=== PATIENT | female | born 1965 | race Caucasian/White ===

== ENCOUNTER 2017-01-17 16:38 | Emergency (ER) | payer OTHER ==
[2017-01-17 16:44] VITALS: O2SAT 97
--- NOTE | 2017-01-17 17:01 | EDPHY ---
H & P Stated Complaint: dvt r leg confirmed U/S today Time Seen by Provider: 01/17/17 16:49 HPI/ROS: CHIEF COMPLAINT: Right calf pain and swelling HISTORY OF PRESENT ILLNESS: The patient presents to the ED with complaints of right calf pain and swelling progressive over the past week. The patient sustained a twisting injury while skiing this weekend. She has no prior history of PE or DVT. She denies pleuritic chest pain or shortness of breath. Patient saw her orthopedic surgeon who did order an outpatient ultrasound which demonstrated a right DVT. She was referred to the ED for further evaluation. In the emergency department she denies numbness weakness. She denies additional complaints. REVIEW OF SYSTEMS: A comprehensive 10 point review of systems is otherwise negative aside from elements mentioned in the history of present illness. Source: Patient - Personal History LMP (Females 10-55): 1-7 Days Ago Current Tetanus/Diphtheria Vaccine: Unsure Current Tetanus Diphtheria and Acellular Pertussis (TDAP): Unsure - Medical/Surgical History Hx Asthma: No Hx Chronic Respiratory Disease: No Hx Diabetes: No Hx Cardiac Disease: No Hx Renal Disease: No Hx Cirrhosis: No Hx Alcoholism: No Hx HIV/AIDS: No Hx Splenectomy or Spleen Trauma: No Other PMH: depression. torn acl R no surgery yet - Social History Smoking Status: Never smoked - Physical Exam Exam: General Appearance: Alert, no distress Eyes: Pupils equal and round no pallor or injection ENT, Mouth: Mucous membranes moist Respiratory: There are no retractions, lungs are clear to auscultation Cardiovascular: Regular rate and rhythm Gastrointestinal: Abdomen is soft and nontender, no masses, bowel sounds normal Neurological: A&O, normal motor function, normal sensory exam, normal cranial nerves Skin: Warm and dry, no rashes Musculoskeletal: Neck is supple nontender Extremities: Asymmetric calf pain, tenderness and swelling noted to the right calf, 2+ dorsalis pedis and posterior tibial pulse, effusion and decreased range of motion noted to the right knee Constitutional: Initial Vital Signs Temperature (C) 36.4 C 01/17/17 16:41 Heart Rate 85 01/17/17 16:41 Respiratory Rate 16 01/17/17 16:41 Blood Pressure 103/76 01/17/17 16:41 O2 Sat (%) 97 01/17/17 16:41 O2 Delivery Mode Room Air Allergies/Adverse Reactions: penicillin G Allergy (Verified 01/17/17 16:40) Home Medications: Medication Instructions Recorded Rivaroxaban [Xarelto 15mg (*)] 15 mg PO BID #42 tab 01/17/17 Topamax 01/17/17 ZOLPIDEM TARTRATE 01/17/17 Medical Decision Making - Diagnostics Imaging: Ultrasound Venous Duplex/Doppler Right Leg History: Pain and swelling. Skiing injury. Findings: Ultrasound venous duplex and Doppler imaging of the common femoral vein, femoral vein, popliteal vein, calf veins, greater saphenous vein origin, and contralateral common femoral vein demonstrates positive intraluminal thrombus involving the right popliteal vein extending through the right as well as both gastrocnemius veins. The common femoral vein and superficial femoral vein appear patent. Impression: Positive deep venous thrombosis involving the right leg including the popliteal vein and calf veins. ED Course/Re-evaluation: The patient presents to the ED with a right lower extremity DVT. The patient has no clinical symptoms suggestive of PE. The patient will be started on Xarelto and follow up with her primary care provider. Initial dose of Xarelto will be started on a 15 mg twice daily dose for the next 21 days. The patient will follow up with her primary care provider Vivian Gregory. The patient understands to return to the ED for any chest pain, shortness of breath, worsening symptoms or other concerns. Differential Diagnosis: Differential diagnosis considered includes DVT, arterial thrombosis, calf hematoma, knee ligamentous injury - Data Points Laboratory Results: Laboratory Results 01/17/17 17:10 01/17/17 17:10 01/17/17 01/17/17 01/17/17 17:10 17:10 17:10 WBC 6.77 10^3/uL 10^3/uL (3.80-9.50) RBC 4.84 10^6/uL 10^6/uL (4.18-5.33) Hgb 13.3 g/dL g/dL (12.6-16.3) Hct 40.4 % % (38.0-47.0) MCV 83.5 fL fL (81.5-99.8) MCH 27.5 pg L pg (27.9-34.1) MCHC 32.9 g/dL g/dL (32.4-36.7) RDW 15.1 % % (11.5-15.2) Plt Count 261 10^3/uL 10^3/uL (150-400) MPV 10.7 fL fL (8.7-11.7) Neut % (Auto) 56.0 % % (39.3-74.2) Lymph % (Auto) 33.8 % % (15.0-45.0) Briscoe % (Auto) 7.2 % % (4.5-13.0) Eos % (Auto) 2.2 % % (0.6-7.6) Baso % (Auto) 0.4 % % (0.3-1.7) Nucleat RBC Rel Count 0.0 % % (0.0-0.2) Absolute Neuts (auto) 3.78 10^3/uL 10^3/uL (1.70-6.50) Absolute Lymphs (auto) 2.29 10^3/uL 10^3/uL (1.00-3.00) Absolute Monos (auto) 0.49 10^3/uL 10^3/uL (0.30-0.80) Absolute Eos (auto) 0.15 10^3/uL 10^3/uL (0.03-0.40) Absolute Basos (auto) 0.03 10^3/uL 10^3/uL (0.02-0.10) Absolute Nucleated RBC 0.00 10^3/uL 10^3/uL (0-0.01) Immature Gran % 0.4 % % (0.0-1.1) Immature Gran # 0.03 10^3/uL 10^3/uL (0.00-0.10) PT 12.8 SEC SEC (12.0-15.0) INR 0.97 (0.83-1.16) APTT 22.1 SEC L SEC (23.0-38.0) Sodium 140 mEq/L mEq/L (134-144) Potassium 3.8 mEq/L mEq/L (3.5-5.2) Chloride 105 mEq/L mEq/L (97-110) Carbon Dioxide 22 mEq/l mEq/l (22-31) Anion Gap 13 mEq/L mEq/L (8-16) BUN 16 mg/dL mg/dL (7-23) Creatinine 1.0 mg/dL mg/dL (0.6-1.0) Estimated GFR 58 Glucose 90 mg/dL mg/dL (70-100) Calcium 9.8 mg/dL mg/dL (8.5-10.4) Departure - Departure Disposition: Home, Routine, Self-Care Clinical Impression: DVT (deep venous thrombosis) Condition: Good Instructions: Deep Venous Thrombosis (ED) Additional Instructions: 1. Please begin Xarelto as directed. You will need to be on a twice a day dose for the next 21 days. Your primary care provider can then switch you to daily dosing. 2. Please return to the ED immediately for any chest pain, shortness of breath, difficulty breathing or other concerns. 3. Please schedule a follow-up appointment with Dr. Gregory in the next several days. Referrals: Vivian Gregory MD [Primary Care Provider] - As per Instructions Prescriptions: Rivaroxaban [Xarelto 15mg (*)] 15 mg PO BID #42 tab
[2017-01-17 17:24] LABS: % IMMATURE GRANULYOCYTES 0.4 % (0.0-1.1); ABSOLUTE IMMATURE GRANULOCYTES 0.03 10^3/uL (0.00-0.10); ADD DIFF? NO; ADD MORPH? NO; ADD SCAN? NO; ATYPICAL LYMPHOCYTE FLAG 10 (0-99); FRAGMENT RBC FLAG 0 (0-99); HEMATOCRIT 40.4 % (38.0-47.0); HEMOGLOBIN 13.3 g/dL (12.6-16.3); LEFT SHIFT FLG 0 (0-99); LIPEMIA HEMOLYSIS FLAG 80 (0-99); MEAN CELL HEMOGLOBIN 27.5 pg (27.9-34.1); MEAN CELL HEMOGLOBIN CONCENTR. 32.9 g/dL (32.4-36.7); MEAN CELL VOLUME 83.5 fL (81.5-99.8); MEAN PLATELET VOLUME 10.7 fL (8.7-11.7); PLATELET CLUMPS FLAG 20 (0-99); PLATELET COUNT 261 10^3/uL (150-400); RED BLOOD CELL COUNT 4.84 10^6/uL (4.18-5.33); RED CELL DISTRIBUTION WIDTH 15.1 % (11.5-15.2)
[2017-01-17 17:33] LABS: INR 0.97 (0.83-1.16); PROTIME(PATIENT) 12.8 SEC (12.0-15.0)
[2017-01-17 17:34] LABS: APTT 22.1 SEC (23.0-38.0)
[2017-01-17 17:44] LABS: ANION GAP 13 mEq/L (8-16); CALCIUM 9.8 mg/dL (8.5-10.4); CARBON DIOXIDE 22 mEq/l (22-31); CHLORIDE 105 mEq/L (97-110); GLOMERULAR FILTRATION RATE 58; GLUCOSE 90 mg/dL (70-100); POTASSIUM 3.8 mEq/L (3.5-5.2); SODIUM 140 mEq/L (134-144)
[2017-01-17 18:58] VITALS: BP 105/76; PULSE 68; RESP 18; TEMP 98.1
[2017-01-18] MEDS ORDERED: RIVAROXABAN 15 MG TAB PO ONE (18:08)
== END 2017-01-17 18:58 | disposition home or self-care (01) ==
DX: I82.401 Acute embolism and thrombosis of unspecified deep veins of right lower extremity (principal); Z79.01 Long term (current) use of anticoagulants

== ENCOUNTER 2017-04-07 09:31 | Emergency (ER) | payer OTHER ==
--- NOTE | 2017-04-07 09:46 | CPEKG ---
Heart Rate: 73 RR Interval: 822 P-R Interval: 120 QRSD Interval: 82 QT Interval: 396 QTC Interval: 437 P Bethune: 69 QRS Bethune: 77 T Wave Bethune: 68 EKG Severity - BORDERLINE ECG - EKG Impression: SINUS RHYTHM EKG Impression: BORDERLINE T ABNORMALITIES, ANT-LAT LEADS Electronically Signed By: Lauren Arroyo 12-Apr-2017 13:46:12
--- NOTE | 2017-04-07 09:52 | EDPHY ---
HPI/HX/ROS/PE/MDM Narrative: CHIEF COMPLAINT: Chest pain HPI: The patient is an anticoagulated 51 y/o female complaining of intermittent sharp left lower chest pain onset last night as she was preparing for bed, about 12 hours ago. She recently was diagnosed with a DVT in January 2017 and started on Xarelto. Her pain usually last for a few seconds at a time and sometimes radiates down her chest. She describes the pain as "jolting" when present. She notes laughing seems to bring on her pain, but is not aggravated by breathing or movement. She denies recent illness, but says it's possible she injured it while weight lifting on Saturday, 4 days ago. She can remember a remote history of similar pain in her remote history during exercise. She denies associated abdominal pain, fever, vomiting, dyspnea, cough, and new leg pain or swelling. REVIEW OF SYSTEMS: Aside from elements discussed in the HPI, a comprehensive 10-point review of systems was reviewed and is negative. PMH: Migraines, right leg DVT January 2017, torn right ACL Prior medical record reviewed including ED visit 01/17/17 for DVT. SOCIAL HISTORY: Nonsmoker PHYSICAL EXAM: General:Patient is alert, in no acute distress. ENT:Eyes are normal to inspection. ENT inspection normal. Neck: Normal inspection. Full range of motion. Respiratory:No respiratory distress. Breath sounds normal bilaterally. Cardiovascular: Regular rate and rhythm. Strong peripheral pulses. Normal cap refill. Abdomen:The abdomen is nontender to palpation. There are no peritoneal signs. There are normal bowel sounds. Back: Normal to inspection. No tenderness to palpation. Skin: Normal color. No rash. Warm and dry. Extremities: Normal appearance. Full range of motion. Neuro: Oriented x3. Normal motor function. Normal sensory function. ED Course: This is a temporarily anticoagulated 51 y/o female who presents with sharp, intermittent left lower chest pain for the last 12 hours. Her exam is unremarkable. She is not hypoxic. Plan for standard chest pain work up with chest x-ray, EKG, IV, and labs including CBC, CHEM, troponin, d-dimer, PTPTT. The 12 lead EKG was interpreted by myself. See hard copy and/or "tracemaster" electronic copy for interpretation. Labs and chest x-ray unremarkable. Discussed findings with the patient and recommended outpatient follow up with [facility]. Strict return precautions given. MDM: This patient presents with intermittent sudden sharp chest pain which is not pleuritic in nature. The patient does have a history of DVT but thankfully d- dimer is negative, and in the setting of ongoing Xarelto use and lack of typical clinical features, I think her pre-test probability is too low for CTA. There is no evidence of ACS, pericarditis, PTX or TAD. The patient is comfortable with the plan to be discharged home and get outpatient workup with cardiology. - Data Points Imaging Results: Imaging Impressions Chest X-Ray 04/07/17 09:43 Impression: Possible airways disease. Imaging: I viewed and interpreted images myself Laboratory Results: Laboratory Results 04/07/17 09:50 04/07/17 09:50 04/07/17 04/07/17 04/07/17 09:50 09:50 09:50 WBC 4.72 10^3/uL 10^3/uL (3.80-9.50) RBC 4.53 10^6/uL 10^6/uL (4.18-5.33) Hgb 12.0 g/dL L g/dL (12.6-16.3) Hct 37.8 % L % (38.0-47.0) MCV 83.4 fL fL (81.5-99.8) MCH 26.5 pg L pg (27.9-34.1) MCHC 31.7 g/dL L g/dL (32.4-36.7) RDW 14.8 % % (11.5-15.2) Plt Count 316 10^3/uL 10^3/uL (150-400) MPV 9.6 fL fL (8.7-11.7) Neut % (Auto) 44.1 % % (39.3-74.2) Lymph % (Auto) 42.2 % % (15.0-45.0) Gove % (Auto) 8.7 % % (4.5-13.0) Eos % (Auto) 4.4 % % (0.6-7.6) Baso % (Auto) 0.4 % % (0.3-1.7) Nucleat RBC Rel Count 0.0 % % (0.0-0.2) Absolute Neuts (auto) 2.08 10^3/uL 10^3/uL (1.70-6.50) Absolute Lymphs (auto) 1.99 10^3/uL 10^3/uL (1.00-3.00) Absolute Monos (auto) 0.41 10^3/uL 10^3/uL (0.30-0.80) Absolute Eos (auto) 0.21 10^3/uL 10^3/uL (0.03-0.40) Absolute Basos (auto) 0.02 10^3/uL 10^3/uL (0.02-0.10) Absolute Nucleated RBC 0.00 10^3/uL 10^3/uL (0-0.01) Immature Gran % 0.2 % % (0.0-1.1) Immature Gran # 0.01 10^3/uL 10^3/uL (0.00-0.10) PT 18.2 SEC H SEC (12.0-15.0) INR 1.51 H (0.83-1.16) APTT 27.8 SEC SEC (23.0-38.0) D-Dimer < 0.27 ug/mLFEU ug/mLFEU (0.00-0.50) Sodium 137 mEq/L mEq/L (134-144) Potassium 4.2 mEq/L mEq/L (3.5-5.2) Chloride 106 mEq/L mEq/L (97-110) Carbon Dioxide 24 mEq/l mEq/l (22-31) Anion Gap 7 mEq/L L mEq/L (8-16) BUN 12 mg/dL mg/dL (7-23) Creatinine 1.0 mg/dL mg/dL (0.6-1.0) Estimated GFR 58 Glucose 91 mg/dL mg/dL (70-100) Calcium 9.4 mg/dL mg/dL (8.5-10.4) Troponin I < 0.012 ng/mL ng/mL (0-0.034) General Time Seen by Provider: 04/07/17 09:43 Initial Vital Signs: Initial Vital Signs Temperature (C) 36.5 C 04/07/17 09:34 Heart Rate 85 04/07/17 09:34 Respiratory Rate 16 04/07/17 09:34 Blood Pressure 117/85 H 04/07/17 09:34 O2 Sat (%) 97 04/07/17 09:34 O2 Delivery Mode Room Air Allergies/Adverse Reactions: penicillin G Allergy (Verified 01/17/17 16:40) Home Medications: Medication Instructions Recorded Rivaroxaban [Xarelto 15mg (*)] 15 mg PO BID #42 tab 01/17/17 Topamax 01/17/17 ZOLPIDEM TARTRATE 01/17/17 Departure - Departure Disposition: Home, Routine, Self-Care Clinical Impression: Chest pain Qualifiers: Chest pain type: other chest pain Qualified Code(s): R07.89 - Other chest pain Condition: Good Instructions: Chest Pain (ED) Additional Instructions: Follow up with dev technical mgr this week without fail. Return to the ED for severe pain, shortness of breath, fever, or other worsening of condition. Referrals: Vivian Gregory MD [Primary Care Provider] - As per Instructions Jordan Layton MD [Medical Doctor] - As per Instructions Report Scribed for: Raf Pete Report Scribed by: Morelia Call Date of Report: 04/07/17 Time of Report: 09:53 Physician Review and Approval Statement: Portions of this note were transcribed by an ED scribe. I personally performed the history, physical exam, and medical decision making; and confirm the accuracy of the information in the transcribed note.
[2017-04-07 10:00] LABS: % IMMATURE GRANULYOCYTES 0.2 % (0.0-1.1); ABSOLUTE IMMATURE GRANULOCYTES 0.01 10^3/uL (0.00-0.10); ADD DIFF? NO; ADD MORPH? NO; ADD SCAN? NO; ATYPICAL LYMPHOCYTE FLAG 0 (0-99); FRAGMENT RBC FLAG 0 (0-99); HEMATOCRIT 37.8 % (38.0-47.0); LEFT SHIFT FLG 0 (0-99); LIPEMIA HEMOLYSIS FLAG 80 (0-99); MEAN CELL HEMOGLOBIN 26.5 pg (27.9-34.1); MEAN CELL HEMOGLOBIN CONCENTR. 31.7 g/dL (32.4-36.7); MEAN CELL VOLUME 83.4 fL (81.5-99.8); MEAN PLATELET VOLUME 9.6 fL (8.7-11.7); PLATELET CLUMPS FLAG 0 (0-99); PLATELET COUNT 316 10^3/uL (150-400); RED BLOOD CELL COUNT 4.53 10^6/uL (4.18-5.33); RED CELL DISTRIBUTION WIDTH 14.8 % (11.5-15.2)
[2017-04-07 10:10] LABS: ANION GAP 7 mEq/L (8-16); CALCIUM 9.4 mg/dL (8.5-10.4); CARBON DIOXIDE 24 mEq/l (22-31); CHLORIDE 106 mEq/L (97-110); GLOMERULAR FILTRATION RATE 58; GLUCOSE 91 mg/dL (70-100); POTASSIUM 4.2 mEq/L (3.5-5.2); SODIUM 137 mEq/L (134-144)
[2017-04-07 10:22] LABS: TROPONIN I < 0.012 ng/mL (0-0.034)
[2017-04-07 10:26] LABS: INR 1.51 (0.83-1.16); PROTIME(PATIENT) 18.2 SEC (12.0-15.0)
[2017-04-07 10:27] LABS: APTT 27.8 SEC (23.0-38.0)
[2017-04-07 11:21] VITALS: BP 114/75; PULSE 71; RESP 18; TEMP 98.8; O2SAT 96
== END 2017-04-07 11:20 | disposition home or self-care (01) ==
DX: R07.89 Other chest pain (principal); Z79.01 Long term (current) use of anticoagulants

== ENCOUNTER 2017-05-09 04:15 | Emergency (ER) | payer OTHER ==
[2017-05-09 04:23] VITALS: RESP 16; TEMP 97.3
[2017-05-09] MEDS ORDERED: HALOPERIDOL LACT 5 MG/ML INJ IVP ONE (04:30)
--- NOTE | 2017-05-09 04:50 | EDPHY ---
H & P Stated Complaint: migraine Time Seen by Provider: 05/09/17 04:24 HPI/ROS: Chief Complaint: Migraine headache HPI: 51-year-old woman with a history of migraine headaches presenting with worsening headache that started earlier this morning. Patient has had nausea and vomiting. Is consistent with her prior migraine headaches. She usually takes nonsteroidal anti-inflammatories for these however she is not able to take them as she is scheduled for an ACL repair later this morning at the outpatient surgery center. She has been unable to take any medications because she has been NPO for her surgery. No fevers or chills. No neck pain or stiffness. Headache was not sudden onset. Is not the worst headache of her life. It is currently an 8/10. ROS: 10 point Review of Systems is negative except as noted in the HPI. PMH: Migraine headaches Social History: No smoking, no alcohol, no recreational drug use Family History: non-contributory Physical Exam: Gen: Awake, Alert, uncomfortable appearing HEENT: Nose: no rhinorrhea Eyes: PERRLA, EOMI Mouth: Moist mucosa Neck: Supple, no JVD Chest: nontender, lungs clear to auscultation Heart: S1, S2 normal, no murmur Abd: Soft, non-tender, no guarding Back: no CVA tenderness, no midline tenderness Ext: no edema, non-tender Skin: no rash Neuro: CN II-XII intact, Sensation grossly intact, Strength 5/5 in bilateral upper and lower extremities - Personal History LMP (Females 10-55): Now Current Tetanus/Diphtheria Vaccine: Unsure Current Tetanus Diphtheria and Acellular Pertussis (TDAP): Unsure - Medical/Surgical History Hx Asthma: No Hx Chronic Respiratory Disease: No Hx Diabetes: No Hx Cardiac Disease: No Hx Renal Disease: No Hx Cirrhosis: No Hx Alcoholism: No Hx HIV/AIDS: No Hx Splenectomy or Spleen Trauma: No Other PMH: PMH:depression. torn acl R no surgery yet, plater, laberal repair, right knee repair, left ulner, lap, tonselectomy, migraine - Social History Smoking Status: Never smoked Constitutional: Initial Vital Signs Temperature (C) 36.3 C 05/09/17 04:21 Heart Rate 66 05/09/17 04:21 Respiratory Rate 16 05/09/17 04:21 Blood Pressure 116/70 05/09/17 04:21 O2 Sat (%) 92 05/09/17 04:21 O2 Delivery Mode Room Air Allergies/Adverse Reactions: penicillin G Allergy (Verified 01/17/17 16:40) Home Medications: Medication Instructions Recorded Topamax 01/17/17 ZOLPIDEM TARTRATE 01/17/17 Lovenox 05/09/17 Medical Decision Making ED Course/Re-evaluation: 51-year-old woman with history of migraine headaches presenting with a headache similar to her prior. She is scheduled for ACL repair and is unable to take nonsteroidals at this time. Will hold off on giving her any nonsteroidals at this time. Will give her Haldol and Benadryl and reassess. 0505 patient is feeling improved. Headache is now gone. No further vomiting. Plan will be for discharge so she can go to the surgery center for assessment for continuing her ACL repair this morning. - Data Points Medications Given: Discontinued Medications Diphenhydramine HCl (Benadryl Injection) 50 mg IVP EDNOW ONE Stop: 05/09/17 04:31 Last Admin: 05/09/17 04:47 Dose: 50 mg Haloperidol Lactate (Haldol Injection) 2.5 mg IVP EDNOW ONE Stop: 05/09/17 04:31 Last Admin: 05/09/17 04:47 Dose: 2.5 mg Departure - Departure Disposition: Home, Routine, Self-Care Clinical Impression: Migraine headache Condition: Good Instructions: Migraine Headache (ED) Additional Instructions: You have not been given nonsteroidal medications this morning so that you can proceed with the surgery as scheduled. Follow up with your doctor in 2-3 days for re-evaluation. Return to the emergency depart for increasing headache, nausea, vomiting, fevers , chills, or any other concerns. Referrals: Vivian Gregory MD [Primary Care Provider] - As per Instructions
[2017-05-09 05:42] VITALS: BP 97/67; PULSE 70; O2SAT 97
== END 2017-05-09 05:42 | disposition home or self-care (01) ==
DX: G43.909 Migraine, unspecified, not intractable, without status migrainosus (principal)
CPT/HCPCS: 96374; J1200

== ENCOUNTER → 2017-06-06 | Outpatient (CLI) | payer OTHER | LOC: FIMAGING 15:06 | PROVIDERS: ATTEND Family Medicine | DX: Z12.31 Encounter for screening mammogram for malignant neoplasm of breast (principal) | CPT/HCPCS: G0202 ==

== ENCOUNTER → 2018-07-04 | Outpatient (CLI) | payer OTHER | LOC: FIMAGING 15:18 | PROVIDERS: ATTEND Family Medicine | DX: Z12.31 Encounter for screening mammogram for malignant neoplasm of breast (principal) ==

== ENCOUNTER → 2019-03-13 | Outpatient (CLI) | payer OTHER | LOC: CIMAGING 12:13 | PROVIDERS: ATTEND Family Medicine | DX: D25.0 Submucous leiomyoma of uterus (principal); D25.1 Intramural leiomyoma of uterus | CPT/HCPCS: 76856-PO ==